=== PATIENT | male | born 1980 | race Caucasian/White ===

== ENCOUNTER 2018-07-06 07:04 | Emergency (ER) | payer OTHER ==
--- NOTE | 2018-07-06 08:01 | ER Document Report ---
ED General - General Chief Complaint: Laceration Stated Complaint: FINGER LACERATION Time Seen by Provider: 07/06/18 07:44 Primary Care Provider: [facility] [Provider Group] - Follow up in 1 week - [facility] Notes: Patient is a 38-year-old male that presents to the emergency department for chief complaint of left hand laceration. Just prior to arrival patient was cutting a zip tie off and the knife slipped causing him to stab his left first MCP joint. He denies any pain or numbness at the area. He denies feeling like the joint is broken. He states he is up-to-date on his tetanus vaccine. he denies blood thinning medications Past Medical History: Negative Past Surgical History: Negative Social History: Daily tobacco, denies drugs and alcohol. Family History: Reviewed and noncontributory for presenting illness Allergies: Reviewed, see documented allergy list. REVIEW OF SYSTEMS: CONSTITUTIONAL : No fever No chills No diaphoresis No recent illness EENT: No vision changes No congestion No sore throat CARDIOVASCULAR: No chest pain No palpitations RESPIRATORY: No shortness of breath No cough No difficulty breathing GASTROINTESTINAL: No abdominal pain No nausea No vomiting No diarrhea GENITOURINARY: No dysuria No hematuria No difficulty urinating MUSCULOSKELETAL: No back pain No leg pain No arm pain SKIN: No rashes left hand laceration LYMPHATIC: No swollen, enlarged glands. NEUROLOGICAL: No lightheadedness No headache No weakness No paresthesias PSYCHIATRIC: No anxiety No depression PHYSICAL EXAMINATION: Vital signs reviewed, nursing noted reviewed. GENERAL: Well-appearing, well-nourished and in no acute distress. HEAD: Atraumatic, normocephalic. EYES: Eyes appear normal, extraocular movements intact, sclera anicteric, conjunctiva are normal. ENT: nares patent, oropharynx clear without exudates. Moist mucous membranes. NECK: Normal range of motion, supple without lymphadenopathy LUNGS: Breath sounds clear to auscultation bilaterally and equal. No wheezes rales or rhonchi. HEART: Regular rate and rhythm without murmurs ABDOMEN: Soft, nontender, normoactive bowel sounds. No rebound, guarding, or rigidity. No masses appreciated. EXTREMITIES: 1.5 cm linear full-thickness laceration over dorsal second MCP joint on the left hand, normal range of motion of left hand, normal strength and sensation in left index finger, no pitting or edema. NEUROLOGICAL: No focal neurological deficits. Moves all extremities spontaneously Motor and sensory grossly intact on exam. PSYCH: Normal mood, normal affect. SKIN: Warm, Dry, normal turgor. Left dorsal hand laceration, see above - Related Data Allergies/Adverse Reactions: acetaminophen [From Vicodin] Adverse Reaction (Verified 07/06/18 07:14) hydrocodone [From Vicodin] Adverse Reaction (Verified 07/06/18 07:14) Past Medical History - Social History Smoking Status: Current Every Day Smoker Chew tobacco use (# tins/day): No Frequency of alcohol use: None Drug Abuse: None Family History: Reviewed & Not Pertinent Patient has suicidal ideation: No Patient has homicidal ideation: No Renal/ Medical History: Denies: Hx Peritoneal Dialysis Physical Exam - Vital signs Vitals: Temp Pulse Resp BP Pulse Ox 97.9 F 77 16 140/86 H 98 07/06/18 07:26 07/06/18 07:26 07/06/18 07:26 07/06/18 07:26 07/06/18 07:26 Course - Re-evaluation Re-evalutation: 07/06/18 07:59 Vitals reviewed. Nursing notes reviewed. Patient's tetanus is up-to-date. His laceration does not have any active bleeding. X-ray will be obtained to evaluate for underlying bony injury. 07/06/18 08:34 Patient's laceration was repaired with stitches. He was placed in AlumaFoam splint for immobilization. Patient will be referred to primary care for suture removal in 7-10 days. He was counseled on wound care and signs of infection to return to the emergency room. His x-ray does show a small foreign body however it is distal to his injury. There is no acute fracture. 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 Likely this foreign body is not new. He has no tenderness over the foreign body region. He was told of the foreign body and does not wish for any medical management of it currently. - Vital Signs Vital signs: Temp Pulse Resp BP Pulse Ox 97.9 F 77 16 140/86 H 98 07/06/18 07:26 07/06/18 07:26 07/06/18 07:26 07/06/18 07:26 07/06/18 07:26 - Diagnostic Test Radiology reviewed: Image reviewed Procedures - Immobilization Left Finger Time completed: 08:37 Pre-Proc Neuro Vasc Exam: Normal Immobilizer type: Finger splint (Static) Performed by: RN Post-Proc Neuro Vasc Exam: Normal Alignment checked and good: Yes - Laceration/Wound Repair Left Hand Time completed: 08:36 Wound length (cm): 1.5 Wound's Depth, Shape: Linear Laceration pre-procedure: Sterile PPE donned, Sterile drapes applied, Shur-Clens applied Anesthetic type: 1% Lidocaine Volume Anesthetic (mLs): 2 Wound explored: Clean, No foreign body removed Irrigated w/ Saline (mLs): 250 Wound Repaired With: Sutures Suture Size/Type: 4:0, Nylon Number of Sutures: 3 Layer Closure?: No Post-procedure NV exam normal: Yes Complications: No Notes: 07/06/18 08:37 Neurovascular or tendinous involvement placed in AlumaFoam splint wound evaluated through full range of motion in a bloodless field with no underlying Discharge - Discharge Clinical Impression: Laceration of left hand Qualifiers: Encounter type: initial encounter Foreign body presence: without foreign body Qualified Code(s): S61.412A - Laceration without foreign body of left hand, initial encounter Condition: Stable Disposition: HOME, SELF-CARE Instructions: Laceration Care (OM) Additional Instructions: Please return to the emergency department if you have any worsening, or concern of your symptoms. Please return to the emergency department if you develop chest pain, difficulty breathing, severe abdominal pain, or ongoing vomiting. Please follow-up with your primary care physician in 2-3 days and any other recommended physicians. If prescribed, take all medications as directed. If you have any questions or concerns do not hesitate to return the emergency department for evaluation. Have your stitches removed in 7-10 days by your primary care provider Return to the emergency room if you develop increased pain, swelling, or redness to your left hand Referrals: [facility] [Provider Group] - Follow up in 1 week
[2018-07-06] MEDS ORDERED: LIDOCAINE 1% INJ-PF (10 MG/ML) 30 ML SDV INJ ONE (08:13)
--- NOTE | 2018-07-06 08:43 | RADIOLOGY REPORT (SQ) ---
EXAM DESCRIPTION: HAND LEFT 3 VIEWS COMPLETED DATE/TIME: 07/06/2018 8:23 am REASON FOR STUDY: 2nd MCP cut cut with knife along the proximal 2nd finger COMPARISON: None. EXAM PARAMETERS: NUMBER OF VIEWS: Three views. TECHNIQUE: AP, lateral and oblique radiographic images acquired of the left hand. LIMITATIONS: Artifact from wedding ring FINDINGS: MINERALIZATION: Normal. BONES: No acute fracture or dislocation. No worrisome bone lesions. JOINTS: No effusions. Mild joint space narrowing and bony spurring at the 1st carpometacarpal joint SOFT TISSUES: Small laceration along the left 2nd metacarpophalangeal joint region. No radiopaque fo reign body in the laceration. Just distal to the laceration, a 3 mm metallic fragment is seen in the left 2nd finger soft tissues, likely from remote prior injury. OTHER: No other significant finding. IMPRESSION: No fracture. Soft tissue laceration without radiopaque foreign body in the wound. Probable chronic 3 mm metallic fragment in the left 2nd finger soft tissues distal to the acute lacer ation TECHNICAL DOCUMENTATION: JOB ID: [id number] [employer]- All Rights Reserved Reading location - IP/workstation name: [email or web address]
[2018-07-06 09:24] VITALS: BP 138/86
== END 2018-07-06 09:24 | disposition home or self-care (01) ==
LOC: ER 07:04
DX: S61.412A Laceration without foreign body of left hand, initial encounter (principal); W26.0XXA Contact with knife, initial encounter; Y93.89 Activity, other specified; F17.200 Nicotine dependence, unspecified, uncomplicated; M79.5 Residual foreign body in soft tissue
CPT/HCPCS: 99283; 73130; 12001; J3490